=== PATIENT | female | born 1970 | race Caucasian/White ===

== ENCOUNTER 2017-06-15 21:39 | Emergency (ER) | payer MEDICAID ==
[~2017-06-15] VITALS: Ht 152.4 cm; Wt 61.0 kg
[2017-06-16] MEDS ORDERED: KETOROLAC 60MG/2ML VIAL IM STA (00:11)
[2017-06-16] MEDS ORDERED: LIDOCAINE HCL 1% 20ML VIAL (Pyxis) INJ MC NR (01:45)
[2017-06-16 02:53] VITALS: BP 145/78
== END 2017-06-16 04:30 | disposition home or self-care (01) ==
LOC: ER 21:39
DX: S92.521A Displaced fracture of middle phalanx of right lesser toe(s), initial encounter for closed fracture (principal); I10 Essential (primary) hypertension; E11.9 Type 2 diabetes mellitus without complications; W22.8XXA Striking against or struck by other objects, initial encounter; Y93.89 Activity, other specified; Y92.018 Other place in single-family (private) house as the place of occurrence of the external cause
CPT/HCPCS: 73630; 81025; 96372; 99284; J1885; J3490; Z7610